=== PATIENT | female | born 1980 | race Caucasian/White ===

== ENCOUNTER 2017-11-07 11:33 | Emergency (ER) | payer BC, OTHER ==
[2017-11-07 12:17] VITALS: BP 115/71
[2017-11-07] MEDS ORDERED: Tetan/Diph/Pertus SYR(Tdap)* 0.5 ML SYR(BOOSTRIX) use SYR IM ONE (12:26)
--- NOTE | 2017-11-07 12:26 | UC ---
Laceration HPI - HPI Summary HPI Summary: 37 female presents to the urgent care c/o cut her face on a john nail on monday while camping, talked to her doctor and her last tetanus was [id number], so was recommended to get update. also wants to talk about scar relief. - History Of Current Complaint Chief Complaint: UCSkin Stated Complaint: FACIAL LAC Time Seen by Provider: 11/07/17 12:24 Hx Obtained From: Patient Hx Last Menstrual Period: 10/18/17 Pain Intensity: 0 - Allergies/Home Medications Allergies/Adverse Reactions: Allergies Allergy/AdvReac Type Severity Reaction Status Date / Time walnuts Allergy Swelling Uncoded 11/07/17 12:16 PMH/Surg Hx/FS Hx/Imm Hx - Surgical History Surgical History: None - Social History Alcohol Use: Daily Substance Use Type: None Smoking Status (MU): Light Every Day Tobacco Smoker Type: Cigarettes Household Exposure Type: Cigarettes - Immunization History Most Recent Influenza Vaccination: a long time ago. Most Recent Tetanus Shot: 2009 Most Recent Pneumonia Vaccination: no Physical Exam Vital Signs: Initial Vital Signs Temp 99.1 F 11/07/17 12:11 Pulse 70 11/07/17 12:11 Resp 18 11/07/17 12:11 BP 115/71 11/07/17 12:11 Pulse Ox 100 11/07/17 12:11 Discharge - Discharge Plan Referrals: Marisol Herrera MD [Primary Care Provider] -
== END 2017-11-07 12:42 | disposition home or self-care (01) ==
LOC: UCEAST 11:33
DX: S01.81XA Laceration without foreign body of other part of head, initial encounter (principal); F17.210 Nicotine dependence, cigarettes, uncomplicated; Z91.018 Allergy to other foods; W45.0XXA Nail entering through skin, initial encounter
CPT/HCPCS: 90471; 90715; 99212; G0463

== ENCOUNTER 2018-03-14 13:44 | Emergency (ER) | payer BC ==
[2018-03-14] MEDS ORDERED: NS 0.9% 1000 ML*IV.FLUID IV ONE (14:00)
[2018-03-14] MEDS ORDERED: Ibuprofen TAB* 600 MG PO ONE (14:03)
--- NOTE | 2018-03-14 14:09 | ED ---
HPI Febrile Illness - HPI Summary HPI Summary: 37 year old otherwise healthy female presents with a 5 day history of fever as high as 102F. Patient states she has been feeling generally fatigued and ill with a fever. States fever is treated with Tylenol or Ibuprofen but returns once the medication wears off. States for the past 2 days she has had a cough with minor sputum production that has been worsening. Patient states she began experiencing diarrhea and has had several episodes of watery stools since yesterday. Endorses some nausea, chills, fevers, sweats, general malaise, cough , CP associated with cough, and mild abdominal pain. Denies SOB, headache, earache, sore throat, difficulty swallowing, and dizziness. - History of Current Complaint Chief Complaint: EDFluSymptoms Time Seen by Provider: 03/14/18 13:51 Hx Obtained From: Patient Hx Last Menstrual Period: 10/18/17 Onset/Duration: Started Days Ago Timing: Constant Temperature: 102 F Initial Severity: Mild - at highest Current Severity: Mild Pain Intensity: 3 Pain Scale Used: 0-10 Numeric Alleviating Factors: OTC Medicine - ibuprofen, tylenol Associated Signs and Symptoms: Chills, Cough, Diaphoresis, Diarrhea, Nausea - Allergy/Home Medications Allergies/Adverse Reactions: Allergies Allergy/AdvReac Type Severity Reaction Status Date / Time walnuts Allergy Swelling Uncoded 11/07/17 12:16 Home Medications: Home Medications Acetaminophen TAB* [Tylenol TAB*] 650 mg PO Q6H PRN 03/14/18 [History Confirmed 03/14/18] Ibuprofen TAB* [Advil TAB*] 200 mg PO Q6H PRN 03/14/18 [History Confirmed ] PMH/Surg Hx/FS Hx/Imm Hx Previously Healthy: Yes Endocrine/Hematology History: 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 Denies: Hx Bone Marrow Disease, Hx Sickle Cell Disease, Hx Anemia Musculoskeletal History: Reports: Hx Scoliosis Infectious Disease History: No Infectious Disease History: Denies: Traveled Outside the [place] in Last 30 Days - Family History Known Family History: Positive: Hypertension, Diabetes - Social History Lives: With Family Alcohol Use: Daily Substance Use Type: Reports: None Smoking Status (MU): Light Every Day Tobacco Smoker Type: Cigarettes Review of Systems Positive: Fever, Fatigue, Skin Diaphoresis Negative: Blurred Vision, Diplopia, Drainage Negative: Sore Throat, Ear Ache Positive: Chest Pain - associated with cough Positive: Cough. Negative: Shortness Of Breath Positive: Abdominal Pain, Diarrhea, Nausea. Negative: Vomiting Negative: Rash Negative: Headache, Weakness, Syncope Psychological: Normal All Other Systems Reviewed And Are Negative: Yes Physical Exam Triage Information Reviewed: Yes Vital Signs On Initial Exam: Initial Vitals Temp Pulse Resp BP Pulse Ox 101 F 107 18 118/80 97 03/14/18 13:47 03/14/18 13:47 03/14/18 13:47 03/14/18 13:47 03/14/18 13:47 Vital Signs Reviewed: Yes Skin: Positive: Warm, Skin Color Reflects Adequate Perfusion Head/Face: Positive: Normal Head/Face Inspection Eyes: Positive: EOMI, LINDA, Conjunctiva Clear ENT: Positive: Hearing grossly normal, Pharynx normal, TMs normal Neck: Positive: Supple, Nontender, No Lymphadenopathy Respiratory/Lung Sounds: Positive: Other - Course breath sounds bilaterally Cardiovascular: Positive: RRR Abdomen Description: Positive: No Organomegaly, Soft, Other: - mild tenderness LRQ, no peritoneal signs.. Negative: Peritoneal Signs Bowel Sounds: Positive: Present Neurological: Positive: Normal Psychiatric: Positive: Normal AVPU Assessment: Alert Diagnostics - Vital Signs Vital Signs Temp Pulse Resp BP Pulse Ox 03/14/18 13:47 101 F 107 18 118/80 97 - Laboratory Result Diagrams: 03/14/18 14:28 03/14/18 14:28 Lab Statement: Any lab studies that have been ordered have been reviewed, and results considered in the medical decision making process. - Radiology chest Radiology Interpretation Completed By: Radiologist Summary of Radiographic Findings: IMPRESSION: CHEST X-RAY FINDINGS ARE MOST CONSISTENT WITH PNEUMONIA INVOLVING THE INFERIOR PORTION OF. THE LEFT UPPER LOBE. A FOLLOW-UP CHEST X-RAY AFTER AN APPROPRIATE COURSE OF THERAPY IS. RECOMMENDED TO ASCERTAIN RESOLUTION. Course/Dx - Course Course Of Treatment: 37 female presents with fever, cough, diarrhea for the past couple days. cough is dry. admits to occasionally SOB. no abdominal pain. admits to occasionally headache. lungs CTA. abd soft. wbc normal. flu neg. chest xray shows pneumonia. gave rocephin and azithromycin. will discharge with azithromycin. patient understand and agrees with plan - Febrile Illness Differential Diagnoses: GI Disease, Pneumonia, Viremia - Diagnoses Provider Diagnoses: Pneumonia Discharge - Sign-Out/Discharge Documenting (check all that apply): Patient Departure - Discharge Plan Condition: Good Disposition: HOME Prescriptions: Azithromycin TAB* [Zithromax TAB (Z-GUILLERMO) 250 mg #6 tabs] 250 mg PO DAILY #4 tab Patient Education Materials: Pneumonia (ED) Referrals: Marisol Herrera MD [Primary Care Provider] - Additional Instructions: Take azithromycin once a day for 4 days Drink plenty of fluids Take tyenlol or ibuprofen every 6 hours as needed for fever Return to ED if develop any new or worsening symptoms - Billing Disposition and Condition Condition: GOOD Disposition: Home
[2018-03-14 14:52] LABS: ABS Basophils 0 10^3/ul (0-0.2); ABS Eosinophils 0 10^3/ul (0-0.6); ABS Lymphocytes 0.8 10^3/ul (1.0-4.8); ABS Monocytes 0.4 10^3/ul (0-0.8); ABS Neutrophils 3.1 10^3/ul (1.5-7.7); ABS Nucleated RBC 0 10^3/ul; Eosinophil % 0.1 %; Hematocrit 38 % (35-47); Hemoglobin 12.7 g/dl (12.0-16.0); Lymphocyte % 18.2 %; Mean Corpuscular HGB Conc 34 g/dl (31-36); Mean Corpuscular Hemoglobin 28 pg (27-31); Mean Corpuscular Volume 82 fL (80-97); Nucleated Red Blood Cells % 0; Platelet Count 146 10^3/ul (150-450); Red Blood Count 4.57 10^6/ul (4.00-5.40); Red Cell Distribution Width 13 % (10.5-15); White Blood Count 4.3 10^3/ul (3.5-10.8)
[2018-03-14] MEDS ORDERED: Azithromycin TAB* 250 MG PO ONE (14:54)
[2018-03-14] MEDS ORDERED: cefTRIAXone(*) 1 GM in NS 0.9% 50 ML* 50 ML IVPB ONE (14:54)
[2018-03-14 15:00] LABS: INR 1.06 (0.77-1.02)
[2018-03-14 15:26] LABS: EGFR Non-African American 75.9 (>60)
[2018-03-14] MEDS ORDERED: NS 0.9% 1000 ML* 1,000 ML IV ONE (16:01)
[2018-03-14] MEDS ORDERED: cefTRIAXone(*) 1 GM ADVAN/BAG ONE (16:08)
[2018-03-14 18:27] LABS: Urine Appearance Turbid; Urine Blood 3+ (Negative); Urine Color Yellow; Urine Ketones 1+ (Negative); Urine Protein 1+(30 mg/dL) (Negative); Urine Red Blood Cell Absent (Absent); Urine Specific Gravity 1.023 (1.010-1.030); Urine Urobilinogen Negative (Negative); Urine White Blood Cell Trace(0-5/hpf) (Absent)
[2018-03-14 23:07] VITALS: BP 110/73
== END 2018-03-14 17:47 | disposition home or self-care (01) ==
LOC: ED 13:44
DX: J18.9 Pneumonia, unspecified organism (principal); M41.9 Scoliosis, unspecified; F17.210 Nicotine dependence, cigarettes, uncomplicated
CPT/HCPCS: 36415; 71046; 80053; 81003; 81015; 83605; 84145; 85025; 85610; 85730; 86140; 87040; 87086; 96361; 96374; 99282; A9270-GY; J0696